=== PATIENT | female | born 1975 | race Caucasian/White ===

== ENCOUNTER → 2017-11-28 | Outpatient (CLI) | payer OTHER ==
--- NOTE | 2017-11-29 09:01 | KCIC ---
EXAM: Bilateral screening mammogram. HISTORY: 42-year-old female presents for screening mammography. TECHNIQUE: Full-field digital craniocaudal and mediolateral oblique standard and breast implant displaced views of both breasts are obtained for evaluation. Computer aided detection with [employer] software version 9.3 was applied. COMPARISON: None. This is a baseline mammogram. BREAST PARENCHYMAL DENSITY: Level C - Heterogeneously dense. FINDINGS: There are circumscribed nodular densities within both breasts, the largest of which is seen within the right upper outer quadrant. There is no architectural distortion or suspicious calcification within either breast. There are unremarkable breast implants. IMPRESSION: BI-RADS Category 0: Additional imaging needed. RECOMMENDATION: Further evaluation with a bilateral breast sonogram is recommended to assess areas of nodularity, given the absence of a prior study to confirm stability. If your mammogram demonstrates that you have dense breast tissue, which could hide abnormalities, and if you have other risk factors for breast cancer that have been identified, you might benefit from supplemental screening tests that may be suggested by your ordering physician. Dense breast tissue, in and of itself, is a relatively common condition. This information is not provided to cause undue concern, but rather to raise your awareness and to promote discussion with your physician regarding the presence of other risk factors, in addition to dense breast tissue. A report of your mammography results will be sent to you and your physician. You should contact your physician if you have any questions or concerns regarding this report. Mammography is a sensitive method for finding small breast cancers, but it does not detect them all and is not a substitute for careful clinical examination. A negative mammogram does not negate a clinically suspicious finding and should not result in delay in biopsying a clinically suspicious abnormality. PQRS compliance statement - Patient information was entered into a reminder system with a target due date for the next mammogram. "Our facility is accredited by the [employer] Mammography [employer]." Electronically signed by: Karla Pichardo MD (11/29/2017 8:58 AM) [id number]
== END | disposition home or self-care (01) ==
LOC: KCIC MAMMO 16:06
PROVIDERS: ATTEND Obstetrics & Gynecology
DX: Z12.31 Encounter for screening mammogram for malignant neoplasm of breast (principal)
CPT/HCPCS: 77067

== ENCOUNTER → 2018-01-24 | Outpatient (CLI) | payer OTHER ==
--- NOTE | 2018-01-24 14:30 | KCIC ---
Bilateral breast ultrasound: Reason for examination: Nodular densities on screening mammogram. Comparison is made to mammographic exam dated 11/28/2017. Ultrasound was performed in the areas of mammographic concern in the upper outer quadrant of the right breast in the inferior left breast and at the axilla. In the right breast at the 10:30 position 7 cm from the nipple, there is a 8.1 mm intramammary lymph node. In the 11:00 position 6 cm from the nipple, there is a 1.1 cm hypoechoic circumscribed lesion which lies in parallel orientation and shows posterior acoustic enhancement. The appearance is consistent with fibroadenoma. No abnormal appearing lymph nodes are seen in the right axilla. The left breast shows a tiny 1.4 mm fibrocystic lesion at the 7:00 position 5 cm from the nipple. No other cystic or solid nodules are seen. There is some ductal patient. IMPRESSION: Probable 1.1 cm fibroadenoma at the 11:00 position of the right breast 6 cm from the nipple. Small intramammary lymph node at the 10:30 position of the right breast 7 cm from the nipple. Small 1.4 mm fibrocystic lesion at the 7:00 position of the left breast. No suspicious abnormality seen. Recommend reevaluation with ultrasound in 6 months. BI-RADS Category 3: Probably Benign. "Our facility is accredited by the [employer] Mammography Program." This patient's information has been entered into a reminder system for the patient to be notified with the results of her examination and a target date for the next mammogram. Electronically signed by: Josefina Balbuena MD (01/24/2018 2:26 PM) [id number]
== END | disposition home or self-care (01) ==
LOC: KCIC US 13:02
PROVIDERS: ATTEND Obstetrics & Gynecology
DX: N60.02 Solitary cyst of left breast (principal)
CPT/HCPCS: 76641